=== PATIENT | female | born 1965 | race Caucasian/White ===

== ENCOUNTER 2018-05-15 10:10 | Emergency (ER) | payer MEDICAID ==
[~2018-05-15] VITALS: Ht 142.2 cm; Wt 65.8 kg
[2018-05-15 10:16] VITALS: BP 103/70
--- NOTE | 2018-05-15 10:22 | NUR ---
Patient ambulated to bed 6.
--- NOTE | 2018-05-15 10:36 | NUR ---
PT BIB SELF FOR RT LOWER BACK PAIN X1 DAY. PT REPORTS SHARP RT LOWER BACK PAIN AT 9/10 THAT RADIATES DOWN RT ARM AND RT LEG. PT STATES SHE WAS PICKING UP CLOTHES OF THE FLOOR LAST NIGHT AND ON HER WAY UP SHE FELT PAIN. PT HAS TREATED WITH ADVIL WITH NO RELIEF. PT DENEIS N/V/D, CP, SOB, OR FEVER. VSS. ER MD TO SEE PT. MEDHX:NONE RX:ADVIL
[2018-05-15] MEDS ORDERED: KETOROLAC 15 MG/ML VIAL IM ONE (11:20)
[2018-05-15] MEDS ORDERED: DIAZEPAM 5 MG TAB PO ONE (11:20)
[2018-05-15 11:34] LABS: APPEARANCE,URINE CLEAR (CLEAR); BILIRUBIN,URINE NEGATIVE (NEGATIVE); BLOOD, URINE NEGATIVE (NEGATIVE); COLOR,URINE YELLOW (YELLOW); LEUKOCYTE ESTERASE ,URINE NEGATIVE (NEGATIVE); NITRITE, URINE NEGATIVE (NEGATIVE); UGLUCOSE NEGATIVE (NEGATIVE)
--- NOTE | 2018-05-15 11:57 | NUR ---
X-RAY NOT DONE YET, X-RAY BUSY IN ICU. PT REPORTS PAIN HAS DECREASED TO 4/10. VSS.
--- NOTE | 2018-05-15 13:12 | NUR ---
PT TAKEN TO XRAY VIA W/C,ACCOMPANIED BY DINING CAR WAITER/WAITRESS.
--- NOTE | 2018-05-15 13:24 | NUR ---
PT SENT TO XRAY WITH JIM ODONNELL
--- NOTE | 2018-05-15 17:52 | NUR ---
PT RESTING IN BED, VSS, PT REPORTS PAIN IN LOWER BACK AT 6/10.
[2018-05-15 18:40] VITALS: BP 110/58
--- NOTE | 2018-05-15 18:40 | NUR ---
Patient discharged with v/s stable. Written and verbal after care instructions given and explained. Patient verbalized understanding. Ambulatory with steady gait. All questions addressed prior to discharge. Advised to follow up with PMD.
== END 2018-05-15 18:40 | disposition home or self-care (01) ==
LOC: MED 10:10
DX: M54.41 Lumbago with sciatica, right side (principal); M50.921 Unspecified cervical disc disorder at C4-C5 level; M50.922 Unspecified cervical disc disorder at C5-C6 level; G43.909 Migraine, unspecified, not intractable, without status migrainosus
CPT/HCPCS: 70450; 72110; 72125; 81003; 81025; 96372; 99284; J1885

== ENCOUNTER 2022-02-04 11:06 | Emergency (ER) | payer MEDICAID, OTHER ==
[~2022-02-04] VITALS: Ht 160 cm; Wt 63.6 kg
[2022-02-04 11:20] VITALS: BP 121/69
--- NOTE | 2022-02-04 11:30 | NUR ---
BIB SELF C/O LEFT HIP, LEFT BACK PAIN RADIATING TO LEFT LEG PAIN X 2 DAYS. 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
[2022-02-04] MEDS ORDERED: KETOROLAC 30 MG/ML VIAL IM ONE (11:35)
[2022-02-04 12:20] LABS: BASOPHILS # (AUTO) 0.1 K/uL (0.00-0.22); BASOPHILS % (AUTO) 1.5 % (0.0-2.0); EOSINOPHILS % (AUTO) 0.3 % (0.0-4.0); HEMATOCRIT 31.7 % (36-48); HEMOGLOBIN 9.7 g/dL (12.0-16.0); LYMPHOCYTES # (AUTO) 0.9 K/uL (2.5-16.5); LYMPHOCYTES % (AUTO) 19.2 % (20.5-51.1); MEAN CORPUSCULAR HEMOGLOBIN 19 pg (27-31); MEAN CORPUSCULAR HGB CONC 30 g/dL (33-37); MEAN CORPUSCULAR VOLUME 62.9 fL (80-94); MONOCYTES # (AUTO) 0.3 K/uL (0.8-1.0); MONOCYTES % (AUTO) 6.5 % (1.7-9.3); NEUTROPHILS # (AUTO) 3.5 K/uL (1.8-7.7); NEUTROPHILS % (AUTO) 72.5 % (42.2-75.2); PLATELET COUNT (AUTO) 271 K/uL (140-450); RED BLOOD CELL COUNT(AUTO) 5.04 MIL/uL (4.20-5.40); RED CELL DISTRIBUTION WIDTH 19.3 % (11.6-13.7); WHITE BLOOD COUNT (AUTO) 4.9 K/uL (4.8-10.8)
[2022-02-04 12:45] LABS: ALBUMIN 3.5 g/dL (3.4-5.0); ANION GAP 11.8 (8-16); CARBON DIOXIDE 29.4 mmol/L (21-32); CREATININE 0.6 mg/dL (0.6-1.3); POTASSIUM 4.2 mmol/L (3.5-5.1); TOTAL BILIRUBIN 0.4 mg/dL (0.0-1.0)
[2022-02-04 13:17] LABS: APPEARANCE,URINE CLEAR (CLEAR); BILIRUBIN,URINE NEGATIVE (NEGATIVE); BLOOD, URINE NEGATIVE (NEGATIVE); COLOR,URINE YELLOW (YELLOW); LEUKOCYTE ESTERASE ,URINE NEGATIVE (NEGATIVE); NITRITE, URINE NEGATIVE (NEGATIVE); UGLUCOSE NEGATIVE (NEGATIVE)
[2022-02-04] MEDS ORDERED: NAPR-1704 PO (13:32)
[2022-02-04] MEDS ORDERED: CAPS1ADH5 TP (13:32)
[2022-02-04] MEDS ORDERED: FERR325E14 PO (13:32)
--- NOTE | 2022-02-04 13:42 | NUR ---
Patient discharged with v/s stable. Written and verbal after care instructions given and explained. Patient alert, oriented and verbalized understanding of instructions. Ambulatory with steady gait. All questions addressed prior to discharge. ID band removed. Patient advised to follow up with PMD. Rx of capsaicin, ferrous sulfate, naproxen (sent) given. Patient educated on indication of medication including possible reaction and side effects. Opportunity to ask questions provided and answered. copy of labs and imaging given
[2022-02-04 13:43] VITALS: BP 121/69
== END 2022-02-04 13:42 | disposition home or self-care (01) ==
LOC: MED 11:06
DX: M51.36 Other intervertebral disc degeneration, lumbar region (principal); M25.552 Pain in left hip; D64.9 Anemia, unspecified; Z79.899 Other long term (current) drug therapy; Z98.890 Other specified postprocedural states
CPT/HCPCS: 36415; 72100; 73502; 80053; 81003; 85025; 96372; 99284; J1885

== ENCOUNTER 2022-04-19 12:16 | Emergency (ER) | payer OTHER ==
[~2022-04-19] VITALS: Ht 147.3 cm; Wt 66.2 kg
[~2022-04-19 12:16] MED LIST: CAPS1ADH5 TP; FERR325E14 PO; NAPR-1704 PO
[2022-04-19 12:29] VITALS: BP 123/66
[2022-04-19] MEDS ORDERED: KETOROLAC 30 MG/ML VIAL IM ONE (13:00)
[2022-04-19] MEDS ORDERED: CYCL-711 PO (13:33)
[2022-04-19] MEDS ORDERED: LID5T TP (13:33)
[2022-04-19] MEDS ORDERED: IBUP-2213 PO (13:33)
[2022-04-19] MEDS ORDERED: POLY10SO OP (13:33)
--- NOTE | 2022-04-19 13:50 | NUR ---
56/F PRESENTS TO ED WITH C/O LEFT ARM AND HAND PAIN AND NUMBNESS X3 MONTHS, STATES WORSENING RECENTLY IN THE EVENINGS, DENIES RECENT INJURY. PATIENT ALSO C/O EYE DISCHARGE AND IRRITATION SINCE YESTERDAY.
--- NOTE | 2022-04-19 13:53 | NUR ---
Patient discharged with v/s stable. Written and verbal after care instructions ABOUT RADICULAR PAIN, BACTERIAL CONJUNCTIVITIS, VIRAL CONJUNCTIVITIS given and explained. Patient alert, oriented and verbalized understanding of instructions. Ambulatory with steady gait. All questions addressed prior to discharge. ID band removed. Patient advised to follow up with PMD. Rx of FLEXERIL, IBUPROFEN, LIDCAINE, POLYTRIM EYE DROPS given. Patient educated on indication of medication including possible reaction and side effects. Opportunity to ask questions provided and answered.
== END 2022-04-19 13:50 | disposition home or self-care (01) ==
LOC: MED 12:16
DX: S60.222A Contusion of left hand, initial encounter (principal); H10.9 Unspecified conjunctivitis; M54.12 Radiculopathy, cervical region; Z79.899 Other long term (current) drug therapy; Z79.1 Long term (current) use of non-steroidal anti-inflammatories (NSAID); Z79.2 Long term (current) use of antibiotics; X58.XXXA Exposure to other specified factors, initial encounter; Y92.89 Other specified places as the place of occurrence of the external cause; Y93.89 Activity, other specified; Y99.8 Other external cause status
CPT/HCPCS: 96372; 99283; J1885

== ENCOUNTER 2022-09-13 18:19 | Emergency (ER) | payer OTHER ==
[~2022-09-13] VITALS: Ht 157.5 cm; Wt 67.3 kg
[~2022-09-13 18:19] MED LIST changes: +CYCL-711 PO; +IBUP-2213 PO; +LID5T TP; +POLY10SO OP
[2022-09-13 18:33] VITALS: BP 106/55; PULSE 103; RESP 20; TEMP 99.6; O2SAT 98
[2022-09-13] MEDS ORDERED: KETOROLAC 30 MG/ML VIAL IM ONE (19:05)
[2022-09-13] MEDS ORDERED: KETOROLAC 30 MG/ML VIAL ONE (20:21)
[2022-09-13] MEDS ORDERED: IBUP-2213 PO (20:36)
[2022-09-13 21:29] VITALS: BP 110/61; PULSE 98; RESP 20; TEMP 98.4; O2SAT 98
--- NOTE | 2022-09-13 21:45 | NUR ---
Patient discharged with v/s stable. Written and verbal after care instructions given and explained. Patient alert, oriented and verbalized understanding of instructions. Wheel Chair Assisted with by caregiver. All questions addressed prior to discharge. ID band removed. Patient advised to follow up with PMD. Rx of MOTRIN given. Patient educated on indication of medication including possible reaction and side effects. Opportunity to ask questions provided and answered.
== END 2022-09-13 21:45 | disposition home or self-care (01) ==
LOC: MED 18:19
DX: S93.491A Sprain of other ligament of right ankle, initial encounter (principal); W01.0XXA Fall on same level from slipping, tripping and stumbling without subsequent striking against object, initial encounter; Y93.89 Activity, other specified; Y92.89 Other specified places as the place of occurrence of the external cause; Y99.8 Other external cause status
CPT/HCPCS: 73610; 73630; 96372; 99284; J1885

== ENCOUNTER 2022-11-05 14:49 | Emergency (ER) | payer OTHER ==
[~2022-11-05] VITALS: Ht 154.9 cm; Wt 63.5 kg
[2022-11-05 14:54] VITALS: BP 110/60; PULSE 94; RESP 14; TEMP 98; O2SAT 100
[2022-11-05 14:55] VITALS: BP 110/60; PULSE 94; RESP 14; TEMP 98; O2SAT 100
[2022-11-05] MEDS ORDERED: HYDROcodone/APAP 5/325 MG 1 TAB TAB PO ONE (15:35)
[2022-11-05] MEDS ORDERED: cefTRIAXone 1,000 MG VIAL ONE (15:42)
[2022-11-05] MEDS ORDERED: CEPH-588 PO (17:04)
[2022-11-05] MEDS ORDERED: CYCL-711 PO (17:05)
== END 2022-11-05 17:25 | disposition home or self-care (01) ==
LOC: MED 14:49
DX: M54.41 Lumbago with sciatica, right side (principal); N39.0 Urinary tract infection, site not specified; Z79.899 Other long term (current) drug therapy; Z79.1 Long term (current) use of non-steroidal anti-inflammatories (NSAID); Z79.2 Long term (current) use of antibiotics; Z88.6 Allergy status to analgesic agent
CPT/HCPCS: 81002; 96365; 99284; J0696; J7030

== ENCOUNTER 2022-11-13 16:49 | Emergency (ER) | payer OTHER ==
[~2022-11-13] VITALS: Ht 152.4 cm; Wt 70.8 kg
[~2022-11-13 16:49] MED LIST changes: +CEPH-588 PO
[2022-11-13 17:04] VITALS: BP 130/91; PULSE 100; RESP 17; TEMP 97.7; O2SAT 99
[2022-11-13] MEDS ORDERED: CYCL-711 PO (18:50)
[2022-11-13] MEDS ORDERED: LID5T TP (18:50)
[2022-11-13] MEDS ORDERED: CIPR250T6 PO (18:50)
[2022-11-13] MEDS ORDERED: NAPR-54 PO (18:50)
[2022-11-13] MEDS ORDERED: KETOROLAC 30 MG/ML VIAL IM ONE (18:55)
[2022-11-13 19:25] VITALS: BP 128/88; PULSE 88; RESP 17; TEMP 98; O2SAT 99
== END 2022-11-13 19:25 | disposition home or self-care (01) ==
LOC: MED 16:49
DX: M54.41 Lumbago with sciatica, right side (principal); M54.42 Lumbago with sciatica, left side; M47.816 Spondylosis without myelopathy or radiculopathy, lumbar region; N39.0 Urinary tract infection, site not specified; Z88.1 Allergy status to other antibiotic agents; Z79.899 Other long term (current) drug therapy
CPT/HCPCS: 72110; 81002; 87086; 96372; 99284; J1885

== ENCOUNTER 2023-02-13 06:45 | Day surgery (SDC) | payer OTHER ==
[~2023-02-13] VITALS: Ht 144.8 cm; Wt 61.7 kg
[~2023-02-13 06:45] MED LIST changes: +CIPR250T6 PO; +NAPR-54 PO
[2023-02-13] MEDS ORDERED: LIDOCAINE 2% 100 MG/5 ML UJET TP ONE (07:32)
[2023-02-13] MEDS ORDERED: fentaNYL citrate 0.05 MG/ML VIAL ONE (07:32)
[2023-02-13] MEDS ORDERED: fentaNYL citrate 0.05 MG/ML VIAL IVP ONE (08:35)
== END 2023-02-13 09:04 | disposition home or self-care (01) ==
LOC: MDS 06:45 → MMU 06:48 → MDS 09:04
PROVIDERS: ATTEND Internal Medicine Gastroenterology
DX: K62.5 Hemorrhage of anus and rectum (principal); K64.8 Other hemorrhoids; D50.0 Iron deficiency anemia secondary to blood loss (chronic); B96.81 Helicobacter pylori [H. pylori] as the cause of diseases classified elsewhere; G43.909 Migraine, unspecified, not intractable, without status migrainosus; K21.9 Gastro-esophageal reflux disease without esophagitis; M19.90 Unspecified osteoarthritis, unspecified site; Z88.8 Allergy status to other drugs, medicaments and biological substances; Z79.899 Other long term (current) drug therapy
CPT/HCPCS: 45378; J3010